=== PATIENT | female | born 1955 | race Caucasian/White ===

== ENCOUNTER 2016-12-07 11:03 | Inpatient (IN) | payer OTHER ==
[~2016-12-07] VITALS: Ht 165.1 cm; Wt 74.0 kg
[2016-12-07] VITALS (21 sets, daily range): BP systolic 86–129; BP diastolic 38–61; PULSE 71–83; RESP 11–28; Ht 165.1 cm; Wt 74.0 kg
[~2016-12-07 11:03] MED LIST: CEFAZOLIN 2 GM/50 ML (PMX) 50 ML IVPB ONE; SOD CHLORIDE 0.9% 1,000 ML IV SCH
[2016-12-07] MEDS ORDERED: ESCI20TA PO (11:50)
[2016-12-07] MEDS ORDERED: LORA1TAB PO (11:50)
[2016-12-07] MEDS ORDERED: BENA10TA48 PO (11:51)
[2016-12-07] MEDS ORDERED: OMEP20CA16 PO (11:52)
[2016-12-07] MEDS ORDERED: SIMV20TA PO (11:53)
[2016-12-07] MEDS ORDERED: HYDR200T5 PO (11:53)
[2016-12-07] MEDS ORDERED: TERA5CAP3 PO (11:54)
[2016-12-07] MEDS ORDERED: SOD CHLORIDE 0.9% 1,000 ML IV ONE (13:00)
[2016-12-07] MEDS ORDERED: CEFAZOLIN 2 GM/50 ML (PMX) 50 ML IVPB ONE (13:00)
[2016-12-07 13:52] LABS: ADD SCAN DIFF NO
[2016-12-07 13:54] LABS: BASOPHILS % 0.7 % (0.0-2.0); EOSINOPHILS # 0.1 10^3/ul (0.0-0.5); HEMATOCRIT 38.9 % (37.0-47.0); LYMPHOCYTES # 1.5 10^3/ul (0.8-2.9); LYMPHOCYTES % 25.7 % (15.0-51.0); MEAN CORPUSCULAR HGB CONC 33.4 g/dl (32.0-37.0); MEAN CORPUSCULAR VOLUME 92.8 fl (82.0-101.0); MEAN PLATELET VOLUME 11.4 fl (7.4-10.4); MONOCYTE # 0.4 10^3/ul (0.3-0.9); MONOCYTES % 7.1 % (0.0-11.0); NEUTROPHIL # 3.7 10^3/ul (1.6-7.5); NEUTROPHILS % 65.2 % (39.0-77.0); PLATELET COUNT 164 10^3/UL (140-415); RED BLOOD COUNT 4.19 10^6/ul (4.20-5.40); RED CELL DISTRIBUTION WIDTH 12.5 % (11.5-14.5); WHITE BLOOD COUNT 5.8 10^3/ul (4.8-10.8)
[2016-12-07 13:56] LABS: POTASSIUM 4.5 mmol/L (3.5-5.1)
[2016-12-07 13:58] LABS: INR 0.95; PARTIAL THROMBOPLASTIN TIME 28.5 Sec (25.0-35.0); PROTIME 12.7 Sec (12.2-14.2)
[2016-12-07 13:59] LABS: CALCIUM 9.3 mg/dl (8.4-10.2); CREATININE 0.83 mg/dl (0.44-1.00)
--- NOTE | 2016-12-07 14:48 | HPN ---
Date/Time of Note Date/Time of Note DATE: 12/07/16 TIME: 14:48 Interval H&P Admission Note Pt. seen H&P reviewed: No system changes ADE PRATHER MD Dec 07, 2016 14:48
[2016-12-07] MEDS ORDERED: LIDOCAINE 2% (SDV) 5 ML INJ ONE (15:00)
[2016-12-07] MEDS ORDERED: NEOSTIGMINE 3 MG/3 ML SYRINGE ONE (15:09)
[2016-12-07] MEDS ORDERED: GLYCOPYRROLATE 0.4 MG INJ ONE (15:09)
[2016-12-07] MEDS ORDERED: ROCURONIUM 50 MG INJ ONE (15:09)
[2016-12-07] MEDS ORDERED: DEXAMETHASONE 4 MG/ML 1 ML INJ ONE (15:09)
[2016-12-07] MEDS ORDERED: CEFAZOLIN 1 GM INJ ONE (15:09)
[2016-12-07] MEDS ORDERED: ONDANSETRON 4 MG INJ ONE (15:09)
[2016-12-07] MEDS ORDERED: PROPOFOL 20 ML ONE (15:09)
[2016-12-07] MEDS ORDERED: MIDAZOLAM 1 MG/ML 2 ML INJ ONE (15:09)
[2016-12-07] MEDS ORDERED: LIDOCAINE 1% (STERILE-PAK) 30 ML INJ ONE (15:44)
[2016-12-07] MEDS ORDERED: BUPIVACAINE 0.25% (MPF) 30 ML INJ ONE (15:45)
[2016-12-07] MEDS ORDERED: POLYMYXIN/BACITRACIN 1L IRRIG ONE (16:28)
[2016-12-07] MEDS ORDERED: EPHEDrine SULFATE 50 MG/5 ML SYG IV PRN (17:00)
[2016-12-07] MEDS ORDERED: HYDROmorphONE (0.2 MG/ML) 10ML SYG IV PRN ×3 (17:00)
[2016-12-07] MEDS ORDERED: MIDAZOLAM 1 MG/ML 2 ML INJ IV PRN (17:00)
[2016-12-07] MEDS ORDERED: LABETALOL HCL 20MG INJ IV PRN (17:00)
[2016-12-07] MEDS ORDERED: TRIMETHOBENZAMIDE 100 MG/ML VIAL IM PRN (17:00)
[2016-12-07] MEDS ORDERED: DIPHENHYDRAMINE 50 MG INJ IV PRN (17:00)
[2016-12-07] MEDS ORDERED: MEPERIDINE 25 MG INJ IV PRN (17:00)
[2016-12-07] MEDS ORDERED: hydrALAzine 20 MG INJ IV PRN (17:00)
[2016-12-07] MEDS ORDERED: FENTAnyl 50 MCG/ML VIAL IV PRN ×2 (17:00)
[2016-12-07] MEDS ORDERED: ONDANSETRON 4 MG INJ IV PRN ×2 (17:00→19:30)
--- NOTE | 2016-12-07 17:46 | OPR ---
Date/Time of Note Date/Time of Note DATE: 12/07/16 TIME: 17:37 Operative Report Procedure Date: Dec 07, 2016 Preoperative Diagnosis Recurrent ventral hernia without obstruction or gangrene Postoperative Diagnosis Recurrent ventral hernia without obstruction or gangrene Operation Performed Laparoscopic repair of recurrent ventral hernia with mesh Surgeon: ADE PRATHER MD Anesthesia: general Anesthesiologist: Nithin Davila M.D. Estimated Blood Loss: minimal Complications: None Pt Condition Post Procedure: stable Disposition: PACU Indications Patient is an overweight 61-year-old female with a history of prior ventral hernia repair with mesh 5 years ago who presented to the office with hernia recurrence. This is been causing increasing pain over the last 4-5 months. She was diagnosed on physical exam as having a recurrence of her hernia. This was confirmed via CT scan. She was scheduled for laparoscopic ventral hernia repair with mesh to prevent further sequelae of hernia disease which include, but are not limited to: Incarceration and strangulation. All risks and benefits of the procedure including, but not limited to: Wound infection, excessive bleeding, postoperative seroma/hematoma formation, hernia recurrence, injury to intra- abdominal organs, chronic pain, conversion to open procedure, etc. were all explained to the patient in full detail. She fully understood and wished to proceed with the procedure. Informed consent was obtained. Operative\Procedure Findings Recurrence of ventral hernia with dense omental adhesions to mesh. Defect measured approximately 4-1/2 cm in maximal dimension. Procedure Description The patient was brought to the operating room and placed supine on the operating table. Bilateral sequential compression devices were placed on both lower extremities. A dose of broad-spectrum perioperative intravenous antibiotics was given. After the induction of smooth general endotracheal anesthesia the patient's abdomen was prepped and draped in standard surgical fashion. After performance of the surgical timeout a 5 mm incision was made in the left upper quadrant and a Veress needle was used to access the intra- abdominal cavity atraumatically. Pneumoperitoneum was then obtained and the Veress needle was exchanged for a 5 mm trocar through which a 5 mm 30 laparoscope was placed. 2 further working ports were then placed, a 12 mm port in the anterior axillary line in line with the umbilicus and another 5 mm port in the left lower quadrant. All port sites were anesthetized with 0.25% Marcaine prior to incision. The recurrent ventral hernia defect was identified. It contained omentum which was densely adhered to the prior mesh. These adhesions were taken down using sharp dissection with the laparoscopic ester. The falciform ligament was then taken down for an operative a distance to be able to adequately deploy the mesh. With the hernia contents reduced the defect was measured and noted to be approximately 4-1/2 cm in maximal dimension. A piece of round Symbotex mesh 15 cm was used to repair the hernia defect with adequate overlap. Trans-fascial sutures of 0 Vicryl were used for the lateral and medial aspects to anchor the mesh to the fascia. The mesh was soaked in antibiotic irrigation prior to placement into the field. The mesh was then further tacked in place using a secure strap tacker in double crown fashion. Pneumoperitoneum was decreased to 10 mmHg during the tacking and securing of the mesh. With the repair complete it was examined and noted to be tension-free and hemostatic. At this point, the fascia of the 12 mm port site was reapproximated using an Endo Close device and a 0 Vicryl suture. Pneumoperitoneum was then released and all remaining trochars were withdrawn under direct vision. Subcutaneous tissues were irrigated with warm normal saline. Further local anesthesia was applied around the skin of the incision sites. Skin of the incision sites were then reapproximated using 4-0 Monocryl sutures in subcuticular fashion. Incisions were cleaned and Dermabond was applied as well as an abdominal binder. The patient was then awoken from anesthesia and transported to recovery room in stable condition. All counts were correct at the end of the case 2 ADE PRATHER MD Dec 07, 2016 17:46
[2016-12-07] MEDS: FENTAnyl 50 MCG/ML VIAL IV PRN ×2 (17:49→17:55)
[2016-12-07] MEDS: OXYCODONE/ACETAMINOPHEN (5/325) TAB PO PRN (17:50)
[2016-12-07] MEDS ORDERED: OXYCODONE/ACETAMINOPHEN (5/325) TAB PO PRN ×2 (18:00→19:30)
[2016-12-07] MEDS ORDERED: morphine 4 MG/ML VIAL IV PRN (18:00)
[2016-12-07] MEDS: FAMOTIDINE 20 MG INJ IV SCH (21:15)
[2016-12-07] MEDS: DOCUSATE SODIUM 100 MG CAP PO SCH (21:36)
[2016-12-07] MEDS: HYDROmorphONE 1 MG/ML SYG IV PRN (21:52)
[2016-12-08] MEDS: OXYCODONE/ACETAMINOPHEN (5/325) TAB PO PRN (01:24)
[2016-12-08] MEDS: DOCUSATE SODIUM 100 MG CAP PO SCH ×3 (06:03→21:48)
[2016-12-08] MEDS: HYDROmorphONE 1 MG/ML SYG IV PRN ×4 (06:03→21:25)
[2016-12-08 08:12] VITALS: BP 106/55; RESP 18
[2016-12-08] MEDS: FAMOTIDINE 20 MG INJ IV SCH ×2 (08:20→20:39)
--- NOTE | 2016-12-08 10:18 | PN ---
Date/Time of Note Date/Time of Note DATE: 12/08/16 TIME: 10:16 Assessment/Plan Lines/Catheters IV Catheter Type (from Nrsg): Saline Lock Assessment/Plan Assessment/Plan 61-year-old female status post laparoscopic recurrent ventral hernia repair postop day #1 * Continue IV narcotic pain control * Out of bed/incentive spirometry * We'll see how she does throughout the course of the day. She may need to stay for pain control issues. Subjective 24 Hr Interval Summary Continues to complain of severe incisional pain which requires IV narcotic pain control. Afebrile. Exam/Review of Systems Vital Signs Vitals Vital Signs Date Time Temp Pulse Resp B/P Pulse Ox O2 Delivery O2 Flow Rate FiO2 12/08/16 08:12 98.1 72 18 106/55 91 12/07/16 19:21 Nasal Cannula 2.0 Intake and Output 12/07/16 12/07/16 12/08/16 15:00 23:00 07:00 Intake Total 2020 ml 850 ml Output Total 30 ml 1200 ml Balance 1990 ml -350 ml Exam Free Text/Dictation GENERAL: Awake, alert, oriented 3. And discomfort secondary to abdominal pain. CARDIOVASCULAR: S1S2, regular rate and rhythm. No murmurs appreciated. RESPIRATORY: Clear to auscultation bilaterally. ABDOMEN: Soft, bowel sounds present, nondistended, incisional tenderness palpation. No hernia recurrence. INCISIONS: Clean, dry, intact EXTREMITIES: Free range of motion 4. No cyanosis, edema, or clubbing. Results Result Diagram: 12/07/16 1245 12/07/16 1245 ADE PRATHER MD Dec 08, 2016 10:18
[2016-12-08] MEDS: ONDANSETRON 4 MG INJ IV PRN ×2 (10:36→16:16)
[2016-12-08] MEDS ORDERED: DIPHENHYDRAMINE 50 MG INJ IV PRN (18:00)
--- NOTE | 2016-12-08 18:00 | QN ---
Documentation Comment [id number] NARA DAVISON MD Dec 08, 2016 18:00
--- NOTE | 2016-12-08 18:27 | HP ---
DATE OF ADMISSION: 12/08/2016 HISTORY OF PRESENT ILLNESS: The patient is a 61-year-old female with history of hypertension, history of knee surgery, history of appendectomy, and hernia surgery, presented to this hospital for abdominal hernia, status post hernia repair. The patient has postoperative abdominal pain and is being monitored for further management. PAST MEDICAL HISTORY: The patient has recurrent ventral hernia without obstruction or gangrene and is status post laparoscopic repair of recurrent ventral hernia with mesh. The patient has history of hypertension, history of dyslipidemia, depression. ALLERGY HISTORY: ASPIRIN. SOCIAL HISTORY: Uses tobacco. MEDICATION AT HOME: 1. Benazepril. 2. Lexapro. 3. Plaquenil for rheumatoid arthritis. 4. Lorazepam. 5. Omeprazole. 6. Simvastatin. 7. Terazosin. REVIEW OF SYSTEMS: HEENT: Unremarkable. RESPIRATORY: Unremarkable. CARDIOVASCULAR: Unremarkable. ABDOMEN: As mentioned above. EXTREMITIES: Unremarkable. CENTRAL NERVOUS SYSTEM: Unremarkable. PHYSICAL EXAMINATION: GENERAL: The patient is a mildly overweight female, awake, alert. VITAL SIGNS: Pulse 71, blood pressure 127/58. HEAD: Atraumatic, normocephalic. Pupils equal, reactive to light. NECK: Supple. No JVD. LUNGS: Clear. CARDIOVASCULAR: S1, S2 normal. ABDOMEN: Soft, tender. Binder noted. EXTREMITIES: There is no cyanosis, clubbing, edema. CENTRAL NERVOUS SYSTEM: The patient is awake, alert. No deficit. LABORATORY DATA: Hematocrit 38.9. IMPRESSION: 1. The patient is status post ventral hernia repair. 2. The patient has hypertension. 3. History of htn sees Dr. lopez as an outpatient. OTHER DIAGNOSES: Include: 1. History of rheumatoid arthritis. 2. History of appendectomy. PLAN: Give this patient IV fluid. Pain medication. Incentive spirometry. The patient will have SCD to the legs. The patient is currently on sodium chloride, Benadryl, docusate sodium, Pepcid. Dictated By: NARA DAVISON MD BS/NTS Conf#: [id number] DID#: [id number] MTDD
[2016-12-08 21:00] VITALS: BP 138/63; RESP 19
[2016-12-09] MEDS: OXYCODONE/ACETAMINOPHEN (5/325) TAB PO PRN ×4 (01:44→23:25)
[2016-12-09 05:23] LABS: ADD SCAN DIFF NO
[2016-12-09] MEDS: DOCUSATE SODIUM 100 MG CAP PO SCH ×3 (05:27→21:38)
[2016-12-09 05:29] LABS: BASOPHILS % 0.2 % (0.0-2.0); EOSINOPHILS # 0.1 10^3/ul (0.0-0.5); EOSINOPHILS % 0.9 % (0.0-7.0); HEMATOCRIT 32.4 % (37.0-47.0); HEMOGLOBIN 10.8 g/dl (12.0-16.0); LYMPHOCYTES # 2.1 10^3/ul (0.8-2.9); LYMPHOCYTES % 25.2 % (15.0-51.0); MEAN CORPUSCULAR HEMOGLOBIN 30.7 pg (29.0-33.0); MEAN CORPUSCULAR HGB CONC 33.3 g/dl (32.0-37.0); MEAN PLATELET VOLUME 11.6 fl (7.4-10.4); MONOCYTE # 0.5 10^3/ul (0.3-0.9); MONOCYTES % 6.5 % (0.0-11.0); NEUTROPHIL # 5.4 10^3/ul (1.6-7.5); NEUTROPHILS % 66.8 % (39.0-77.0); PLATELET COUNT 147 10^3/UL (140-415); RED BLOOD COUNT 3.52 10^6/ul (4.20-5.40); WHITE BLOOD COUNT 8.1 10^3/ul (4.8-10.8)
[2016-12-09 05:40] LABS: ALBUMIN 3.5 g/dl (3.3-4.9)
[2016-12-09 05:41] LABS: POTASSIUM 4.8 mmol/L (3.5-5.1)
[2016-12-09 05:43] LABS: ALBUMIN/GLOBULIN RATIO 1.12; BILIRUBIN,INDIRECT 0.6 mg/dl (0-1.1); BILIRUBIN,TOTAL 0.6 mg/dl (0.2-1.3); CREATININE 0.91 mg/dl (0.44-1.00); TOTAL PROTEIN 6.6 g/dl (6.1-8.1)
[2016-12-09 05:44] LABS: CALCIUM 8.5 mg/dl (8.4-10.2)
[2016-12-09 07:32] VITALS: BP 107/55; RESP 20
[2016-12-09] MEDS: FAMOTIDINE 20 MG INJ IV SCH (08:15)
[2016-12-09] MEDS: HYDROmorphONE 1 MG/ML SYG IV PRN (08:16)
[2016-12-09] MEDS: BISACODYL (EC) 5 MG TAB PO PRN (14:16)
--- NOTE | 2016-12-09 16:38 | PN ---
Date/Time of Note Date/Time of Note DATE: 12/09/16 TIME: 16:37 Assessment/Plan Lines/Catheters IV Catheter Type (from Nrsg): Saline Lock Day in Place (from Nrsg): No Assessment/Plan Assessment/Plan 61-year-old female status post laparoscopic recurrent ventral hernia repair postop day #2 * Try to transition to by mouth pain control * Out of bed/incentive spirometry * Milk of magnesia * Possible DC home in a.m. Subjective 24 Hr Interval Summary Feeling better, but still with significant incisional pain requiring the occasional IV narcotic. No flatus or bowel movement. Afebrile. Exam/Review of Systems Vital Signs Vitals Vital Signs Date Time Temp Pulse Resp B/P Pulse Ox O2 Delivery O2 Flow Rate FiO2 12/09/16 07:32 98.3 72 20 107/55 94 12/07/16 19:21 Nasal Cannula 2.0 Intake and Output 12/08/16 12/08/16 12/09/16 15:00 23:00 07:00 Intake Total 880 ml 950 ml Output Total 2250 ml Balance 880 ml -1300 ml Exam Free Text/Dictation GENERAL: Awake, alert, oriented 3. No acute distress CARDIOVASCULAR: S1S2, regular rate and rhythm. No murmurs appreciated. RESPIRATORY: Clear to auscultation bilaterally. ABDOMEN: Soft, bowel sounds present, nondistended, incisional tenderness palpation. No hernia recurrence. INCISIONS: Clean, dry, intact EXTREMITIES: Free range of motion 4. No cyanosis, edema, or clubbing. Results Result Diagram: 12/09/160 12/09/16 0420 ADE PRATHER MD Dec 09, 2016 16:38
[2016-12-09] MEDS ORDERED: OXYCODONE/ACETAMINOPHEN (10/325) TAB PO PRN (17:00)
[2016-12-09] MEDS ORDERED: MAGNESIUM HYDROXIDE 30ML CUP PO ONE (17:00)
[2016-12-09] MEDS: PANTOPRAZOLE (EC) 40 MG TAB PO SCH (17:21)
[2016-12-09] MEDS ORDERED: ZOLPIDEM 5 MG TAB PO PRN (19:30)
[2016-12-09] MEDS: ONDANSETRON 4 MG INJ IV PRN (19:35)
--- NOTE | 2016-12-09 20:10 | PN ---
Date/Time of Note Date/Time of Note DATE: 12/09/16 TIME: 20:09 Assessment/Plan VTE Prophylaxis VTE Prophylaxis Intervention: other Lines/Catheters IV [facility]ter Type (from [facility] Saline Lock Urinary Cath still in place: No Assessment/Plan Chief Complaint/Hosp Course IMPRESSION: 1. The patient is status post ventral hernia repair. 2. The patient has hypertension. 3. History of htn sees Dr. lopez as an outpatient. OTHER DIAGNOSES: Include: 1. History of rheumatoid arthritis. 2. History of appendectomy 3 hyponatremia plan per surgery ns Problems: Subjective 24 Hr Interval Summary Subjective hx not possible: other (abd pain+) Exam/Review of Systems Vital Signs Vitals Vital Signs Date Time Temp Pulse Resp B/P Pulse Ox O2 Delivery O2 Flow Rate FiO2 12/09/16 07:32 98.3 72 20 107/55 94 12/07/16 19:21 Nasal Cannula 2.0 Intake and Output 12/08/16 12/08/16 12/09/16 15:00 23:00 07:00 Intake Total 880 ml 950 ml Output Total 2250 ml Balance 880 ml -1300 ml Exam Neck: supple Respiratory: clear to auscultation Cardiovascular: regular rate and rhythm Gastrointestinal: bowel sounds (mild), soft Musculoskeletal: nl extremities to inspection Results Result Diagram: 12/09/16 0420 12/09/16 0420 Results 24 hrs Laboratory Tests Test 12/09/16 04:20 White Blood Count 8.1 # Red Blood Count 3.52 L Hemoglobin 10.8 L Hematocrit 32.4 L Mean Corpuscular Volume 92.0 Mean Corpuscular Hemoglobin 30.7 Mean Corpuscular Hemoglobin Concent 33.3 Red Cell Distribution Width 12.0 Platelet Count 147 Mean Platelet Volume 11.6 H Neutrophils % 66.8 Lymphocytes % 25.2 Monocytes % 6.5 Eosinophils % 0.9 Basophils % 0.2 Nucleated Red Blood Cells % 0.0 Neutrophils # 5.4 Lymphocytes # 2.1 Monocytes # 0.5 Eosinophils # 0.1 Basophils # 0.0 Nucleated Red Blood Cells # 0.0 Sodium Level 126 L Potassium Level 4.8 Chloride Level 95 L Carbon Dioxide Level 29 Anion Gap 7 L Blood Urea Nitrogen 13 Creatinine 0.91 Glucose Level 90 Calcium Level 8.5 Total Bilirubin 0.6 Direct Bilirubin 0.00 Indirect Bilirubin 0.6 Aspartate Amino Transf (AST/SGOT) 40 Alanine Aminotransferase (ALT/SGPT) 32 Alkaline Phosphatase 34 L Total Protein 6.6 Albumin 3.5 Globulin 3.10 Albumin/Globulin Ratio 1.12 Medications Medications Current Medications Oxycodone/ Acetaminophen (Percocet (5/ 325)) 1 tab Q4H PRN PO MILD PAIN (1-3) Last administered on 12/08/16 12:57; Admin Dose 1 TAB; Start 12/07/16 at 18:00 Oxycodone/ Acetaminophen (Percocet (5/ 325)) 2 tab Q4H PRN PO MODERATE PAIN (4- 6) Last administered on 12/09/16 17:22; Admin Dose 2 TAB; Start 12/07/16 at 18: 00 Morphine Sulfate (morphine) 4 mg Q3H PRN IV SEVERE PAIN LEVEL 7-10; Start 12/07 at 18:00 Ondansetron HCl (Zofran Inj) 4 mg Q6H PRN IV NAUSEA Last administered on 19:35; Admin Dose 4 MG; Start 12/07/16 at 18:00 Hydromorphone HCl (Dilaudid) 1 mg Q4 PRN IV SEVERE PAIN LEVEL 7-10 Last administered on 12/09/16 08:16; Admin Dose 1 MG; Start 12/07/16 at 19:30 Oxycodone/ Acetaminophen (Percocet (5/ 325)) 1 tab Q6H PRN PO PAIN LEVEL 6-10; Start 12/07/16 at 19:30 Ondansetron HCl (Zofran Inj) 4 mg Q6H PRN IV NAUSEA AND/OR VOMITING; Start at 19:30 Docusate Sodium (Colace) 100 mg Q8 PO Last administered on 12/09/16 14:17; Admin Dose 100 MG; Start 12/07/16 at 22:00 Diphenhydramine HCl (Benadryl) 25 mg BID PRN IV ITCHING Last administered on 18:05; Admin Dose 25 MG; Start 12/08/16 at 18:00 Famotidine (Pepcid) 20 mg Q12 PO ; Start 12/09/16 at 21:00 Bisacodyl (Dulcolax) 10 mg BID PRN PO CONSTIPATION Last administered on 14:16; Admin Dose 10 MG; Start 12/09/16 at 14:30 Simethicone (Mylicon) 80 mg Q6 PO Last administered on 12/09/16 17:21; Admin Dose 80 MG; Start 12/09/16 at 14:30 Benazepril HCl (Lotensin) 10 mg DAILY PO ; Start 12/10/16 at 09:00 Terazosin HCl (Hytrin) 5 mg HS PO ; Start 12/09/16 at 21:00 Hydroxychloroquine Sulfate (Plaquenil) 200 mg DAILY PO ; Start 12/10/16 at 09:00 Escitalopram Oxalate (Lexapro) 20 mg DAILY PO ; Start 12/10/16 at 09:00 Atorvastatin Calcium (Lipitor) 10 mg DAILY@21 PO ; Start 12/09/16 at 21:00 Pantoprazole (Protonix Tab) 40 mg BID@06,18 PO Last administered on 12/09/16 17:21; Admin Dose 40 MG; Start 12/09/16 at 18:00 Oxycodone/ Acetaminophen (Endocet (10/ 325)) 1 tab Q4H PRN PO PAIN; Start 12/09 at 17:00 Zolpidem Tartrate (Ambien) 5 mg HS PRN PO INSOMNIA; Start 12/09/16 at 19:30 NARA DAVISON MD Dec 09, 2016 20:10
[2016-12-09 20:11] VITALS: BP 132/63; RESP 19
[2016-12-09] MEDS ORDERED: TERAZOSIN 5 MG CAP PO SCH (21:00)
[2016-12-09] MEDS ORDERED: ATORVASTATIN 10 MG TAB PO SCH (21:00)
[2016-12-09] MEDS ORDERED: POTASSIUM CHLORIDE 10 MEQ in SOD CHLORIDE 0.9% 1,000 ML IV SCH (21:30)
[2016-12-09] MEDS: FAMOTIDINE 20 MG TAB PO SCH (21:38)
[2016-12-10] MEDS: DOCUSATE SODIUM 100 MG CAP PO SCH (06:02)
[2016-12-10] MEDS: BISACODYL (EC) 5 MG TAB PO PRN (06:02)
[2016-12-10] MEDS: PANTOPRAZOLE (EC) 40 MG TAB PO SCH (06:02)
[2016-12-10 06:04] LABS: ADD SCAN DIFF NO
[2016-12-10 06:14] LABS: ALBUMIN 3.5 g/dl (3.3-4.9)
[2016-12-10 06:16] LABS: BASOPHILS % 0.5 % (0.0-2.0); EOSINOPHILS # 0.1 10^3/ul (0.0-0.5); EOSINOPHILS % 1.7 % (0.0-7.0); HEMATOCRIT 34.5 % (37.0-47.0); HEMOGLOBIN 11.6 g/dl (12.0-16.0); LYMPHOCYTES # 2.2 10^3/ul (0.8-2.9); LYMPHOCYTES % 34.1 % (15.0-51.0); MEAN CORPUSCULAR HEMOGLOBIN 30.8 pg (29.0-33.0); MEAN CORPUSCULAR HGB CONC 33.6 g/dl (32.0-37.0); MEAN CORPUSCULAR VOLUME 91.5 fl (82.0-101.0); MEAN PLATELET VOLUME 11.6 fl (7.4-10.4); MONOCYTE # 0.5 10^3/ul (0.3-0.9); MONOCYTES % 8.3 % (0.0-11.0); NEUTROPHIL # 3.5 10^3/ul (1.6-7.5); NEUTROPHILS % 55.1 % (39.0-77.0); PLATELET COUNT 155 10^3/UL (140-415); RED BLOOD COUNT 3.77 10^6/ul (4.20-5.40); WHITE BLOOD COUNT 6.4 10^3/ul (4.8-10.8)
[2016-12-10 06:17] LABS: ALBUMIN/GLOBULIN RATIO 1.29; BILIRUBIN,INDIRECT 0.3 mg/dl (0-1.1); BILIRUBIN,TOTAL 0.3 mg/dl (0.2-1.3); CREATININE 0.89 mg/dl (0.44-1.00); TOTAL PROTEIN 6.2 g/dl (6.1-8.1)
[2016-12-10 06:18] LABS: CALCIUM 8.7 mg/dl (8.4-10.2)
[2016-12-10 07:44] VITALS: BP 131/79; RESP 20
[2016-12-10] MEDS: OXYCODONE/ACETAMINOPHEN (5/325) TAB PO PRN (08:04)
[2016-12-10] MEDS: FAMOTIDINE 20 MG TAB PO SCH (08:04)
[2016-12-10] MEDS ORDERED: BENAZEPRIL 10 MG TAB PO SCH (09:00)
[2016-12-10] MEDS ORDERED: HYDROXYCHLOROQUINE 200 MG TAB PO SCH (09:00)
[2016-12-10] MEDS ORDERED: ESCITALOPRAM 10 MG TAB PO SCH (09:00)
--- NOTE | 2016-12-10 09:03 | PN ---
Date/Time of Note Date/Time of Note DATE: 12/10/16 TIME: 09:01 Assessment/Plan Lines/Catheters IV Catheter Type (from Nrs): Peripheral IV Day in Place (from Nrs): No Assessment/Plan Assessment/Plan 61-year-old female status post laparoscopic recurrent ventral hernia repair postop day #3 * Surgically stable for discharge home if medically cleared * Follow-up in office in one week Subjective 24 Hr Interval Summary Feeling much better. Passing flatus. Afebrile. Exam/Review of Systems Vital Signs Vitals Vital Signs Date Time Temp Pulse Resp B/P Pulse Ox O2 Delivery O2 Flow Rate FiO2 12/10/16 07:44 98.1 86 20 131/79 97 12/07/16 19:21 Nasal Cannula 2.0 Intake and Output 12/09/16 12/09/16 12/10/16 15:00 23:00 07:00 Intake Total 1440 ml 775 ml Balance 1440 ml 775 ml Exam Free Text/Dictation GENERAL: Awake, alert, oriented 3. No acute distress CARDIOVASCULAR: S1S2, regular rate and rhythm. No murmurs appreciated. RESPIRATORY: Clear to auscultation bilaterally. ABDOMEN: Soft, bowel sounds present, nondistended, incisional tenderness palpation improving. No hernia recurrence. INCISIONS: Clean, dry, intact EXTREMITIES: Free range of motion 4. No cyanosis, edema, or clubbing. Results Result Diagram: 12/10/16 0530 12/10/16 0530 ADE PRATHER MD Dec 10, 2016 09:03
[2016-12-10] MEDS ORDERED: MINERAL OIL 30ML CUP PO SCH (10:30)
== END 2016-12-10 11:22 | disposition home or self-care (01) | DRG 355 ==
LOC: SDS 11:03 → PP2 19:50 → SDS 19:50 → UNDOADMIN 19:50 → PP2 19:50 → OBSVTOIN 12-08 14:13
PROVIDERS: ADMIT Internal Medicine Nephrology; ATTEND Internal Medicine Nephrology
PROC: 0WUF4JZ Supplement Abdominal Wall with Synthetic Substitute, Percutaneous Endoscopic Approach (ICD-10-PCS; principal; 2016-12-07 15:00)
DX: K43.2 Incisional hernia without obstruction or gangrene (principal); I10 Essential (primary) hypertension; E78.5 Hyperlipidemia, unspecified; M06.9 Rheumatoid arthritis, unspecified; Z72.0 Tobacco use
CPT/HCPCS: 80048; 80053; 85025; 85610; 85730; G0378; J0690; J1100; J1170; J1200; J2175; J2250; J2270; J2405; J2710; J3010; J3480; J7030